=== PATIENT | female | born 1955 | race Caucasian/White ===

== ENCOUNTER 2020-06-15 09:37 | Outpatient (CLI) | payer OTHER, BC ==
[2020-06-15] MEDS ORDERED: GADOBENATE DIMEGLUMINE 529 MG/ML, 15 ML VIAL IV ONE (10:00)
== END 2020-06-15 20:30 | disposition home or self-care (01) ==
LOC: SMI 09:37
PROVIDERS: ATTEND Obstetrics & Gynecology
DX: N85.9 Noninflammatory disorder of uterus, unspecified (principal); N83.209 Unspecified ovarian cyst, unspecified side
CPT/HCPCS: 72197; A9577

== ENCOUNTER 2020-07-09 07:17 | Day surgery (SDC) | payer OTHER, MEDICARE, SELFPAY ==
[~2020-07-09] VITALS: Ht 163.8 cm; Wt 93.9 kg
[~2020-07-09 07:17] MED LIST: CEFAZOLIN SOD 1 GM in D5W 50 ML IV ONE
[2020-07-09] MEDS ORDERED: SEVOFLURANE 15 MIN GAS INH ONE (10:00)
[2020-07-09] MEDS ORDERED: MIDAZOLAM HCL 5 MG/5 ML VIAL IVP ONE (10:00)
[2020-07-09] MEDS ORDERED: ONDANSETRON HCL 4 MG/2 ML VIAL IVP ONE (10:00)
[2020-07-09] MEDS ORDERED: fentaNYL CITRATE 250 MCG/5 ML AMP IV ONE (10:00)
[2020-07-09] MEDS ORDERED: LR 1,000 ML IV.SOLN IV ONE (10:00)
[2020-07-09] MEDS ORDERED: POLYMYXIN 500,000/BACIT.10,000 UNITS in NS IRR 1 L IR ONE ×2 (10:00→10:29)
[2020-07-09] MEDS ORDERED: DEXAMETHASONE SOD PHOSPHATE 4 MG/ML VIAL IVP ONE (10:00)
[2020-07-09] MEDS ORDERED: LIDOCAINE 1% 10 MG/ML, 20 ML MDV INJ ONE (10:00)
[2020-07-09] MEDS ORDERED: PROPOFOL 200MG/ 20ML VIAL (DIPRIVAN) IV ONE (10:00)
[2020-07-09] MEDS ORDERED: NORMAL SALINE 10 ML VIAL IVP ONE (10:00)
[2020-07-09] MEDS ORDERED: NS 100 ML BAG IV ONE (10:00)
[2020-07-09] MEDS ORDERED: HEPARIN SODIUM, PORCINE 10,000 UNITS/ 10 ML VIAL MC ONE (10:00)
[2020-07-09] MEDS ORDERED: ePHEDrine sulfate 50 MG/ML VIAL IVP ONE (10:00)
[2020-07-09] MEDS ORDERED: LR 1,000 ML IV SCH (10:45)
[2020-07-09] MEDS ORDERED: LABETALOL 100 MG/ 20ML VIAL IVP PRN (10:45)
[2020-07-09] MEDS ORDERED: hydrALAZINE HCL 20 MG/ML VIAL IVP PRN (10:45)
[2020-07-09] MEDS ORDERED: METOCLOPRAMIDE HCL 10 MG/2 ML VIAL IVP PRN (10:45)
[2020-07-09] MEDS ORDERED: MEPERIDINE HCL/PF 25 MG/ML DISP.SYRIN IVP PRN (10:45)
[2020-07-09] MEDS ORDERED: ONDANSETRON HCL 4 MG/2 ML VIAL IVP PRN (10:45)
[2020-07-09] MEDS ORDERED: HYDROmorphone 1 MG INJ. 1 MG/ML CARTRIDGE IVP PRN ×2 (10:45)
[2020-07-09] MEDS ORDERED: MIDAZOLAM HCL 2 MG/2 ML VIAL (VERSED) IVP PRN (10:45)
[2020-07-09] MEDS ORDERED: D5/0.45 NS 1,000 ML IV SCH (11:45)
[2020-07-09 13:19] VITALS: BP_SYST 124
== END 2020-07-09 13:45 | disposition home or self-care (01) ==
LOC: SDS 07:17 → SMU 07:19 → SDS 13:45
PROVIDERS: ATTEND Colon & Rectal Surgery
DX: C34.90 Malignant neoplasm of unspecified part of unspecified bronchus or lung (principal); I10 Essential (primary) hypertension; E78.5 Hyperlipidemia, unspecified; I25.2 Old myocardial infarction; M06.9 Rheumatoid arthritis, unspecified; I73.9 Peripheral vascular disease, unspecified; Z79.899 Other long term (current) drug therapy
CPT/HCPCS: 36415; 36561; 71045; 77001; 87426; C1769; C1788; J0690; J1100; J1644; J2001; J2250; J2405; J2704; J3010; J7060; J7120; 76000

== ENCOUNTER 2022-04-04 07:56 | Emergency (ER) | payer OTHER, MEDICARE ==
[~2022-04-04] VITALS: Ht 162.6 cm; Wt 90.7 kg
[2022-04-04 08:10] VITALS: BP_SYST 116
--- NOTE | 2022-04-04 08:24 | NUR ---
Patient triaged and placed in waiting room. VSS and patient appears in no acute distress at this time. Accompanied by staff, awaiting available bed, and Dr. Ciro JEAN notified of need for MSE.
[2022-04-04] MEDS ORDERED: TETRACAINE HCL/PF 0.5% OPHTHALMIC DROPS 4 ML OP ONE (08:30)
[2022-04-04] MEDS ORDERED: FLUORESCEIN SODIUM 1 MG OPHTHALMIC STRIP OP ONE (08:30)
--- NOTE | 2022-04-04 08:45 | NUR ---
ER at bedside examining patient.
--- NOTE | 2022-04-04 09:30 | NUR ---
Pt bib self from home. CC left orbital pain Pt states slipped and fell. Pt is cross eyed at baseline. Pt denies neuro defecit. VSS. Pain level 7/10.
[2022-04-04] MEDS ORDERED: AUG875 PO (09:52)
[2022-04-04] MEDS ORDERED: ACET-2634 PO (09:52)
[2022-04-04] MEDS ORDERED: ONDA-8 TL (09:52)
[2022-04-04] MEDS ORDERED: HYDR-3917 PO (09:52)
--- NOTE | 2022-04-04 10:50 | NUR ---
Patient given written and verbal discharge instructions and verbalizes understanding. ER MD discussed with patient the results and treatment provided. Patient in stable condition. ID arm band removed. Rx of tylenol augmentin norco and zofran given. Patient educated on pain management and to follow up with PMD. Opportunity for questions provided and answered. Medication side effect fact sheet provided.
[2022-04-04 10:55] VITALS: BP_SYST 116
== END 2022-04-04 10:50 | disposition home or self-care (01) ==
LOC: SED 07:56
DX: S02.32XA Fracture of orbital floor, left side, initial encounter for closed fracture (principal); Z88.1 Allergy status to other antibiotic agents; Z91.040 Latex allergy status; Z79.899 Other long term (current) drug therapy; W18.30XA Fall on same level, unspecified, initial encounter; Y93.89 Activity, other specified; Y92.89 Other specified places as the place of occurrence of the external cause; Y99.8 Other external cause status
CPT/HCPCS: 70480; 76376; 99284